=== PATIENT | male | born 1990 ===

== ENCOUNTER 2021-07-15 17:30 | Outpatient (CLI) | payer OTHER | END 2021-07-15 17:31 | disposition home or self-care (01) | LOC: SLEEPLAB 17:30 | PROVIDERS: ATTEND Family Medicine | DX: G47.33 Obstructive sleep apnea (adult) (pediatric) (principal); R53.83 Other fatigue; E66.9 Obesity, unspecified; R06.83 Snoring; Z68.38 Body mass index [BMI] 38.0-38.9, adult | CPT/HCPCS: 95806 ==